=== PATIENT | male | born 1940 | race Caucasian/White ===

== ENCOUNTER 2021-05-25 19:27 | Observation (INO) | payer MEDICARE, OTHER ==
[~2021-05-25] VITALS: Ht 188 cm; Wt 114.3 kg
[2021-05-25 19:44] LABS: BASOPHILS % 0.4 % (0.0-1.0); EOSINOPHILS # (AUTO) 0.1 (0.0-0.4); EOSINOPHILS % 1.2 % (0.0-6.0); HEMATOCRIT 49.4 % (38.2-49.6); HEMOGLOBIN 15.8 g/dL (14.0-18.0); LYMPHOCYTES # (AUTO) 1.4 (1.0-3.2); LYMPHOCYTES % 16.6 % (18.0-39.1); MEAN CORPUSCULAR HEMOGLOBIN 29.7 pg (28-32); MEAN CORPUSCULAR VOLUME 92.9 fL (81-99); MONOCYTES # (AUTO) 0.8 (0.2-0.8); MONOCYTES % 10.1 % (4.4-11.3); NEUTROPHILS # (AUTO) 5.8 (2.1-6.9); NEUTROPHILS % 71.5 % (38.7-80.0); PLATELET COUNT 209 x10e3/uL (140-360); RED BLOOD COUNT 5.32 x10e6/uL (4.3-5.7); RED CELL DISTRIBUTION WIDTH 14.6 % (11.7-14.4)
[2021-05-25 20:03] LABS: ALBUMIN 3.3 g/dL (3.5-5.0); CREATININE, SERUM 1.11 mg/dL (0.72-1.25)
[2021-05-25] MEDS: ASPIRIN 81 MG CHEW TAB PO ONE ×2 (20:59→21:09)
[2021-05-25 21:41] VITALS: BP 150/75
[2021-05-25 22:00] VITALS: BP 150/75
[2021-05-25] MEDS ORDERED: LISINOPRIL40 MG PO (23:30)
[2021-05-25] MEDS ORDERED: LIPITOR20 MG PO (23:30)
[2021-05-25] MEDS ORDERED: ISOSORBIDE MONO30 MG PO (23:30)
[2021-05-25] MEDS ORDERED: NORVASC2.5 MG PO (23:30)
[2021-05-25] MEDS ORDERED: GLIMEPIRIDE1 MG PO (23:30)
[2021-05-25] MEDS ORDERED: ATENOLOL100 MG PO (23:30)
[2021-05-25] MEDS ORDERED: CLONAZEPAM0.5 MG PO (23:30)
[2021-05-25] MEDS ORDERED: METFORMIN HCL500 MG PO (23:30)
[2021-05-25] MEDS ORDERED: LEXAPRO20 MG PO (23:30)
[2021-05-26] VITALS: BP 117/69
[2021-05-26 04:00] VITALS: BP 99/70
[2021-05-26 06:14] LABS: BASOPHILS % 0.5 % (0.0-1.0); EOSINOPHILS # (AUTO) 0.1 (0.0-0.4); EOSINOPHILS % 1.5 % (0.0-6.0); HEMATOCRIT 43.8 % (38.2-49.6); HEMOGLOBIN 14.2 g/dL (14.0-18.0); LYMPHOCYTES # (AUTO) 1.4 (1.0-3.2); LYMPHOCYTES % 20.6 % (18.0-39.1); MEAN CORPUSCULAR HEMOGLOBIN 30.1 pg (28-32); MEAN CORPUSCULAR HGB CONC 32.4 g/dL (31-35); MONOCYTES # (AUTO) 0.7 (0.2-0.8); MONOCYTES % 11.3 % (4.4-11.3); NEUTROPHILS # (AUTO) 4.3 (2.1-6.9); NEUTROPHILS % 65.8 % (38.7-80.0); PLATELET COUNT 179 x10e3/uL (140-360); RED BLOOD COUNT 4.71 x10e6/uL (4.3-5.7); RED CELL DISTRIBUTION WIDTH 14.3 % (11.7-14.4)
[2021-05-26 06:28] LABS: ANION GAP 8.6 mmol/L (8-16); CALCIUM 8.2 mg/dL (8.4-10.2); CREATININE, SERUM 0.88 mg/dL (0.72-1.25); POTASSIUM 3.6 mmol/L (3.5-5.1)
[2021-05-26] MEDS ORDERED: CLONAZEPAM 0.5 MG TAB PO PRN (07:30)
[2021-05-26 07:37] VITALS: BP 119/62
[2021-05-26 08:36] VITALS: BP 119/62
[2021-05-26] MEDS ORDERED: LISINOPRIL 20 MG TAB PO SCH (09:00)
[2021-05-26] MEDS ORDERED: ESCITALOPRAM OXALATE 10 MG TAB PO SCH (09:00)
[2021-05-26] MEDS ORDERED: METFORMIN HCL 500 MG TAB PO SCH (09:00)
[2021-05-26] MEDS ORDERED: ISOSORBIDE MONONITRATE 30 MG TAB CR PO SCH (09:00)
[2021-05-26] MEDS ORDERED: ATORVASTATIN 20 MG TAB PO SCH (21:00)
[2021-05-26] MEDS ORDERED: ATENOLOL 100 MG TAB PO SCH (21:00)
== END 2021-05-26 10:55 | disposition home or self-care (01) ==
LOC: ER 19:31 → INTOOBSV 21:11 → ERHOLD 21:11 → MED/SURG 21:36
PROVIDERS: ADMIT Internal Medicine; ATTEND Internal Medicine
DX: F41.9 Anxiety disorder, unspecified (principal); F41.0 Panic disorder [episodic paroxysmal anxiety]; I10 Essential (primary) hypertension; E78.5 Hyperlipidemia, unspecified; E11.9 Type 2 diabetes mellitus without complications; Z95.818 Presence of other cardiac implants and grafts; Z20.822 Contact with and (suspected) exposure to COVID-19
CPT/HCPCS: 36415; 71045; 80048; 80053; 82550; 82553; 82948; 83880; 84484; 85025; 93005; 93306; 94799; 99284; G0378; U0002